=== PATIENT | female | born 1965 | race Caucasian/White ===

== ENCOUNTER 2017-03-20 06:26 | Inpatient (IN) ==
[2017-03-20] MEDS ORDERED: traMADol 50 MG TABLET PO PRN (08:24)
[2017-03-20] MEDS ORDERED: ONDANSETRON 4 MG/2 ML VIAL IV PRN (08:24)
[2017-03-20] MEDS ORDERED: TEMAZEPAM 7.5 MG CAPSULE PO PRN (08:24)
[2017-03-20] MEDS ORDERED: MYLANTA/LIDO VISC 2:1 300 ML BOTTLE SWISH/SPIT PRN (08:24)
[2017-03-20] MEDS ORDERED: ALPRAZolam 0.25 MG TABLET PO PRN (08:24)
[2017-03-20] MEDS ORDERED: chlorproMAZINE INJ 50 MG in SODIUM CHLORIDE 0.9% 100 ML IV PRN (08:24)
[2017-03-20] MEDS ORDERED: diphenhydrAMINE CAP 25 MG CAPSULE PO PRN (08:24)
[2017-03-20] MEDS ORDERED: chlorproMAZINE INJ 25 MG in SODIUM CHLORIDE 0.9% 100 ML IV PRN (08:24)
[2017-03-20] MEDS ORDERED: BENZTROPINE 2 MG/2 ML AMP IV PRN (08:24)
[2017-03-20] MEDS ORDERED: guaiFENesin 200 MG/10 ML UDCUP PO PRN (08:24)
[2017-03-20] MEDS ORDERED: PROMETHAZINE INJ 25 MG in SODIUM CHLORIDE 0.9% 50 ML IV PRN (08:24)
[2017-03-20] MEDS ORDERED: LOPERAMIDE 2 MG CAPSULE PO PRN ×2 (08:24)
[2017-03-20] MEDS ORDERED: ALUMINUM/MAGNES/SIMETH MAX STR 30 ML UDCUP PO PRN (08:24)
[2017-03-20] MEDS ORDERED: chlorproMAZINE 25 MG TABLET PO PRN (08:24)
[2017-03-20] MEDS ORDERED: MAGNESIUM HYDROXIDE SUSP 30 ML UDCUP PO PRN (08:24)
[2017-03-20] MEDS ORDERED: ACETAMINOPHEN 325 MG TABLET PO PRN (08:24)
[2017-03-20] MEDS ORDERED: LACTULOSE 20 GM/30 ML UDCUP PO PRN (08:24)
[2017-03-20] MEDS ORDERED: MYLANTA/LIDO VISC 2:1 300 ML BOTTLE SWISH/SWAL PRN (08:24)
--- NOTE | 2017-03-20 09:03 | Oncology History&Physical ---
Assessment and Plan (1) Thyroid cancer Status: Acute Assessment and plan: The patient will receive 150 mCi of radioactive iodine treatment later today with appropriate sequestration protocol in place. Current Visit: Yes History of Present Illness Chief complaint: Thyroid cancer History of present illness: Ms. Avila is a 51 year old female With thyroid cancer diagnosed 2016. She did undergo thyroid resection with Dr. Vipul acuña. My recommendations were for observation only with TSH suppression. She was felt to have an early stage of disease. She has seen Dr. Olaf Pereira as well as Dr. Simba Garcia for second opinion. They have recommended iodine ablation given a strongly positive iodine scan. Her thyroglobulin has remained approximately at a level of 12 and is not escalating. She has been off of thyroid replacement for 6 or 7 weeks and does not report any adverse effects. I do not have access to a recent TSH at this moment. I did perform a needle aspiration of the neck with benign findings several months ago. Her past medical history is otherwise notable for hypertension. She was interviewed and examined today along with her daughter and Home Medications Medication Instructions Recorded Confirmed Type Amlodipine Besylate [Amlodipine 10 mg PO DAILY 03/20/17 03/20/17 History Besylate] Lisinopril [Lisinopril] 40 mg PO DAILY 03/20/17 03/20/17 History hydroCHLOROthiazide 25 mg PO DAILY 03/20/17 03/20/17 History [Hydrochlorothiazide] Allergies Allergy/AdvReac Type Severity Reaction Status Date / Time No Known Allergies Allergy Verified 03/20/17 08:14 Medical,Surgical,& Family Hx - Medical History Cardio: History of: Hypertension Endocrine: History of: Thyroid Disorder - Surgical History Reproductive Surgeries: Surgical HX of;: Section (in 1993 and in 1996) - Family History Family History: Reports;: Family Cancer (mother and father), Family Diabetes ( father and brother) Comment Only: Family Heart Disease (mother and father), Family Hypertension ( mother) - Social History Smoking Status: Never smoker - Constitutional Constitutional: Absent: chills, fatigue, fever(s), weakness - EENT Eye: Absent: blurry vision, loss of vision Nose, mouth and throat: Absent: dysphagia, epistaxis - Cardiovascular Cardiovascular ROS IM: Absent: chest pain - Respiratory Respiratory: Absent: cough - Musculoskeletal Musculoskeletal ROS: Absent: back pain - Neurological Neurological ROS: Absent: abnormal gait Exam - Constitutional Vitals: Period Temp Pulse Resp BP Sys/Wallace Pulse Ox Last 24 Hr 97.4 F 60 20 129/78 99 General appearance: no acute distress, over weight - Eye Eye Exam: Present: EOMI, other (Mild exophthalmos). Absent: conjunctival injection Pupils: Present: PERRL - ENT ENT exam: Present: normal external ear exam - Respiratory Respiratory exam: Absent: accessory muscle use, chest wall tenderness - GI/Abdominal GI/Abdominal exam: Absent: ascites, guarding - Neurological Exam Neurological exam: Present: alert, oriented X3 - Psychiatric Psychiatric exam: Present: normal affect, normal mood - Skin Skin exam: Present: warm, dry
[2017-03-20] MEDS: hydroCHLOROthiazide 25 MG TABLET PO SCH (09:25)
[2017-03-20] MEDS: amLODIPine 10 MG TABLET PO SCH (09:25)
[2017-03-20] MEDS: LISINOPRIL 20 MG TABLET PO SCH (09:26)
--- NOTE | 2017-03-21 09:47 | Oncology Progress Note ---
Assessment and Plan (1) Thyroid cancer Status: Acute Assessment and plan: The patient will receive 150 mCi of radioactive iodine treatment later today with appropriate sequestration protocol in place. Current Visit: Yes Oncology Subjective PN Interval history: Patient appears stable without nausea vomiting. Anticipate discharge tomorrow afternoon pending further radiation readings Exam - Constitutional Vitals: Period Temp Pulse Resp BP Sys/Wallace Pulse Ox Last 24 Hr 96.5 F-99.0 F 60-79 18-20 111-185/62-91 91-99
--- NOTE | 2017-03-21 09:50 | Radiation Oncology Letter ---
Radiation Oncology - Letter Ms. Avila is a 51-year-old white female who presented with a visually apparent right neck mass in the region of the thyroid. Dr. Short did a fine- needle aspirate which was nondiagnostic. 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 The tumor had no obvious capsule and had a pushing rather than an invasive border. There was no lymphovascular invasion there was no perineural invasion but the tumor approached the cauterized surface. Postoperative ultrasound showed a 2.4 x 2.8 x 1.8 cm pretext tracheal mass of tissue of questionable etiology. An I-131 scan was performed and showed a starburst pattern over the thyroid bed consistent with residual thyroid tissue. There was some increased uptake noted in both the stomach and the bladder. She is scheduled to undergo 150 mCi I-131 ablation at [facility] on March 20.
[2017-03-21] MEDS: hydroCHLOROthiazide 25 MG TABLET PO SCH (10:49)
[2017-03-21] MEDS: amLODIPine 10 MG TABLET PO SCH (10:49)
[2017-03-21] MEDS: LISINOPRIL 20 MG TABLET PO SCH (10:50)
--- NOTE | 2017-03-22 08:49 | Nuclear Medicine Report ---
History: Thyroid cancer Date: March 20, 2017 Study: Nuclear medicine I-131 therapy for thyroid cancer Comparison exam: I-131 whole body scan February 13, 2017 Benefits, risks, and precautions associated with I-131 therapy were discussed with the patient. Informed consent was obtained. The patient ingested 151.2 mCi I-131 in capsule form without immediate incident. Impression: I-131 therapy for thyroid cancer PROCEDURE INTERPRETED AT [facility] DEPARTMENT OF RADIOLOGY Final Report Signed by: Dr. Stacy Cyr
--- NOTE | 2017-03-22 08:51 | Discharge Summary ---
Hospital Course - Hospital Course Hospital Course: Patient admitted for radioactive iodine ablation with history of thyroid cancer. She is tolerating the therapy well at this time without nausea or vomiting. She should be approved for discharge late today or tomorrow morning. As of this time she will remain off of thyroid replacement. I am under the impression that a follow-up scan will be ordered in the near future. There was apparently a large amount of thyroid tissue on her pretreatment imaging. I plan to check a TSH in 2 weeks at the office and a 4 week follow-up and have also asked for radiotherapy follow-up to be scheduled. Diagnosis - Discharge Diagnosis (1) Thyroid cancer Status: Acute Discharge Plan - Discharge Medications No Action Lisinopril [Lisinopril] 40 mg PO DAILY Amlodipine Besylate [Amlodipine Besylate] 10 mg PO DAILY hydroCHLOROthiazide [Hydrochlorothiazide] 25 mg PO DAILY - Follow Up or Referral - Forms/Instructions Exam - Constitutional Vitals: Period Temp Pulse Resp BP Sys/Wallace Pulse Ox Last 24 Hr 96.7 F-98.7 F 61-69 18-20 134-143/68-89 98 DS: Provider Date of admission: 03/20/17 08:29 Primary care physician: Nonstaff Physician Attending physician on admission: Drake Starks MD Discharging clinician: Drake Starks MD
[2017-03-22] MEDS: hydroCHLOROthiazide 25 MG TABLET PO SCH (09:34)
[2017-03-22] MEDS: amLODIPine 10 MG TABLET PO SCH (09:34)
[2017-03-22] MEDS: LISINOPRIL 20 MG TABLET PO SCH (09:34)
[2017-03-22 21:22] VITALS: BP 106/79
== END 2017-03-23 09:22 | disposition home or self-care (01) | DRG 645 ==
LOC: N.4EOUT 06:26 → N.4E 08:29
PROVIDERS: ADMIT Specialist; ATTEND Specialist

== ENCOUNTER 2019-06-20 20:57 | Observation (INO) ==
[2019-06-20] MEDS ORDERED: ASPIRIN 325 MG TABLET PO STA (21:25)
[2019-06-20] MEDS ORDERED: NITROGLYCERIN SL 0.4 MG TABLET SL PRN (21:25)
[2019-06-20 21:35] LABS: Basophils # 0.1 10*3/uL (0.0-0.2); Basophils % 1.1 % (0.0-0.8); Eosinophils # 0.3 10*3/uL (0.0-0.87); Eosinophils % 2.9 % (0.00-10.9); Hematocrit 43.7 VOL% (35.7-47.0); Immature Granulocytes % 0.2 %; Immature Granulocytes Absolute 0.02 #; Lymphocytes # 2.4 10*3/uL (1.4-4.0); Lymphocytes % 26.4 % (21.3-54.2); Mean Corpuscular HGB Conc 34.3 GM/DL (32-36); Mean Corpuscular Volume 88.8 FL (87-102); Mean Platelet Volume 10.6 FL (9.6-12.0); Monocytes % 6.3 % (1.7-12.7); Neutrophils % 63.1 % (38.7-73.9); Platelet Count 208 T/CUMM (130-400); Red Blood Count 4.92 MC/CUMM (3.8-5.5); Red Cell Distribution Width 13.2 % (9.3-17.3)
[2019-06-20 21:49] LABS: PT Patient Result 10.7 SECS (9.6-12.2); Partial Thromboplastin Time 25.8 SECS (20.8-36.0)
[2019-06-20 21:57] LABS: Albumin 3.8 G/DL (3.4-5.0); Bilirubin,Total 0.4 MG/DL (0.2-1.0); Calcium 9.3 MG/DL (8.5-10.1); Osmolality,Calculated 284.4 MOS/KG (273-304); Troponin I < 0.015 NG/ML (0.00-0.045)
[2019-06-20] MEDS ORDERED: ONDANSETRON 4 MG/2 ML VIAL IV STA (22:32)
[2019-06-20] MEDS ORDERED: MORPHINE 4 MG/1 ML VIAL IV ONE (22:32)
[2019-06-20] MEDS ORDERED: KETOROLAC 30 MG/1 ML VIAL IV STA (22:42)
[2019-06-20] MEDS ORDERED: MORPHINE 4 MG/1 ML VIAL IV PRN (22:58)
[2019-06-20] MEDS ORDERED: POTASSIUM CHLORIDE 20 MEQ TABLET PO PRN (22:58)
[2019-06-20] MEDS ORDERED: GLUCAGON 1 MG VIAL IM PRN (22:58)
[2019-06-20] MEDS ORDERED: MAGNESIUM SULF RIDER 2 GM in PREMIX 1 EACH IV PRN (22:58)
[2019-06-20] MEDS ORDERED: ONDANSETRON 4 MG/2 ML VIAL IV PRN (22:58)
[2019-06-20] MEDS ORDERED: DEXTROSE 50% 25 GM/50 ML VIAL IV PRN (22:58)
[2019-06-20] MEDS ORDERED: ACETAMINOPHEN 325 MG TABLET PO PRN (22:58)
[2019-06-20] MEDS ORDERED: BISACODYL 5 MG TABLET PO PRN (22:58)
[2019-06-20] MEDS ORDERED: ZALEPLON 5 MG CAPSULE PO PRN (22:58)
[2019-06-21 01:15] LABS: Troponin I < 0.015 NG/ML (0.00-0.045)
[2019-06-21 06:08] LABS: Risk Ratio 4.47
[2019-06-21 06:31] LABS: Troponin I < 0.015 NG/ML (0.00-0.045)
[2019-06-21] MEDS ORDERED: ENOXAPARIN 40 MG/0.4 ML SYRINGE SUBCUT SCH (09:00)
[2019-06-21] MEDS ORDERED: ASPIRIN EC 325 MG TABLET PO SCH (09:00)
[2019-06-21] MEDS: INSULIN REGULAR 100 UNIT/ML SUBCUT SCH ×2 (09:05→11:20)
[2019-06-21 11:13] VITALS: BP 149/84
== END 2019-06-21 13:13 | disposition home or self-care (01) ==
LOC: N.ED 20:57 → N.EDINP 20:57 → N.TELEN 23:54
PROVIDERS: ADMIT Emergency Medicine; ATTEND Emergency Medicine